=== PATIENT | female | born 1955 | race African-American/Black ===

== ENCOUNTER 2016-09-17 13:48 | Emergency (ER) | payer MEDICARE, OTHER ==
[~2016-09-17] VITALS: Ht 167.6 cm; Wt 76.7 kg
[~2016-09-17 13:48] MED LIST: ACETAMINOPHEN-1 EAC1 ORAL; ANTIVERT25 MG ORAL; HYDROCHLOROTH12.5 M2 ORAL; METROGEL-VAGINA70 G1 VAGIN; ONDANSETRON ODT4 MG ORAL; ZANTAC150 MG ORAL; ZYRTEC10 MG ORAL
[2016-09-17 14:30] VITALS: BP 115/75
--- NOTE | 2016-09-17 15:19 | Emergency Room Report ---
History of Present Illness General Chief Complaint: Abdominal Pain Source: Patient Present Illness HPI 61-year-old female presents to ED for evaluation. Patient states the last week she's had mid abdominal pain. Gas-like pain. Sharp. 5/10. Radiating from left to right. No other aggravating relieving factors. Notes nausea. Denies vomiting. Notes feeling constipated. Notes history of acid reflux and is taking Zantac. Denies chest pain or shortness of breath. No other aggravating or leading factors. Denies any other associated symptoms Allergies: Coded Allergies: Cultivated Oat Pollen (Verified Allergy, Severe, Shortness of Breath, ) Patient History Past Medical History: HTN Past Surgical History: none Pertinent Family History: none Social History: Denies: alcohol use, drug use, smoking Now: No Immunizations: UTD Reviewed Nursing Documentation: PMH: Agreed, PSxH: Agreed Nursing Documentation-PMH Past Medical History: No History, Except For Hx Cardiac Problems: No - Hypothyroidism Hx Hypertension: Yes Hx Pacemaker: No Hx Asthma: No Hx COPD: No Hx Diabetes: No Hx Cancer: No Hx Gastrointestinal Problems: No Hx Dialysis: No History Of Psychiatric Problem: No Hx Neurological Problems: No Hx Cerebrovascular Accident: No Hx Seizures: No Review of Systems All Other Systems: negative except mentioned in HPI Physical Exam Vital Signs Date Time Temp Pulse Resp B/P Pulse Ox O2 Delivery O2 Flow Rate FiO2 09/17/16 14:04 98.2 90 16 119/68 99 Room Air Sp02 EP Interpretation: reviewed, normal General Appearance: no apparent distress, alert, GCS 15, non-toxic Head: normocephalic, atraumatic Eyes: bilateral eye PERRL, bilateral eye normal inspection ENT: hearing grossly normal, normal pharynx, no angioedema, normal voice Neck: full range of motion, supple/symm/no masses Respiratory: chest non-tender, lungs clear, normal breath sounds, speaking full sentences Cardiovascular #1: regular rate, rhythm, no edema Cardiovascular #2: 2+ carotid (R), 2+ carotid (L), 2+ radial (R), 2+ radial (L) , 2+ dorsalis pedis (R), 2+ dorsalis pedis (L) Gastrointestinal: normal bowel sounds, non tender, soft, non-distended, no guarding, no rebound Rectal: deferred Genitourinary: normal inspection, no CVA tenderness Musculoskeletal: back normal, gait/station normal, normal range of motion, non- tender Neurologic: alert, oriented x3, responsive, motor strength/tone normal, sensory intact, speech normal Psychiatric: judgement/insight normal, memory normal, mood/affect normal, no suicidal/homicidal ideation Reflexes: 3+ bicep (R), 3+ bicep (L), 3+ tricep (R), 3+ tricep (L), 3+ knee (R) , 3+ knee (L) Skin: normal color, no rash, warm/dry, well hydrated Lymphatic: no adenopathy Medical Decision Making Diagnostic Impression: Primary Impression: Constipation Qualified Codes: K59.00 - Constipation, unspecified Additional Impressions: Vaginal candidiasis GERD (gastroesophageal reflux disease) Qualified Codes: K21.9 - Gastro-esophageal reflux disease without esophagitis ER Course Hospital Course 61-year-old female presents ED complaining of abd discomfort. History of GERD. Differential diagnosis includes- UTI, gastritis, constipation Clinical course Patient placed on stretcher. After initial history and physical I ordered UA, prilosec, KUB Labs - UA shows + yeast, no UTI KUB - copious stool noted Upon reassessment, patient states pain has improved. Given improvement in symptoms and lack of acute findings, I believe patient can be safely discharged to home. Patient agrees with plan I feel this is a highly complex case requiring extensive working including EKG/ Rhythm strip, Xray/CT/US, Blood/urine lab work, repeat exams while in ED, and administration of strong opiates/narcotics for pain control, admission to hospital or close patient follow up. Diagnosis - constipation, vaginal candidiasis, GERD Stable and discharged to home with Rx diflucan, Colace. instructed on high- fiber diet. Followup with PMD. Return to ED if symptoms recur or worsen Labs Test 09/17/16 15:30 Urine Color Yellow Urine Appearance Slightly cloudy Urine pH 7 (4.5-8.0) Urine Specific [place] 1.010 (1.005-1.035) Urine Protein 2+ (NEGATIVE) Urine Glucose (UA) Negative (NEGATIVE) Urine Ketones Negative (NEGATIVE) Urine Occult Blood 4+ (NEGATIVE) Urine Nitrite Negative (NEGATIVE) Urine Bilirubin 1+ (NEGATIVE) Urine Ictotest Negative Urine Urobilinogen 8 MG/DL (0.0-1.0) Urine Leukocyte Esterase 2+ (NEGATIVE) Urine RBC 5-10 /HPF (0 - 2) Urine WBC 2-4 /HPF (0 - 2) Urine Squamous Epithelial Cells Few /LPF (NONE/OCC) Urine Bacteria Few /HPF (NONE) Urine Yeast Few /HPF (NONE) Other X-Ray Diagnostic Results Other X-Ray Diagnostic Results : X-Ray Ordered: KUB EP Interpretation: Yes Findings: no fractures, no dislocation, no soft tissue swelling, other - fecal impaction Number of Views: 1 Last Vital Signs Date Time Temp Pulse Resp B/P Pulse Ox O2 Delivery O2 Flow Rate FiO2 09/17/16 14:04 98.2 90 16 119/68 99 Room Air Status: improved Disposition: HOME, SELF-CARE Condition: Stable Scripts Ondansetron Odt* (ZOFRAN ODT*) 4 Mg Tab.rapdis 4 MG ORAL Q6H Y for Nausea & Vomiting, #30 TAB 0 Refills Prov: CODY YU M.D. 09/17/16 Docusate Sodium* (COLACE*) 100 Mg Capsule 100 MG ORAL THREE TIMES A DAY, #30 CAP Prov: CODY YU M.D. 09/17/16 Fluconazole (DIFLUCAN) 150 Mg Tablet 150 MG PO QWEEK, #2 TAB 0 Refills Prov: CODY YU M.D. 09/17/16 CODY YU M.D. Sep 17, 2016 15:19
[2016-09-17 15:43] LABS: APPEARANCE,URINE SLIGHTLY CLOUDY; KETONES,URINE NEGATIVE (NEGATIVE); LEUKOCYTE ESTERASE ,URINE 2+ (NEGATIVE); NITRITE,URINE NEGATIVE (NEGATIVE); PH,URINE 7 (4.5-8.0); PROTEIN,URINE 2+ (NEGATIVE); UROBILINOGEN,URINE 8 MG/DL (0.0-1.0)
[2016-09-17 15:58] LABS: BACTERIA,URINE FEW /HPF; SQUAMOUS EPITHELIAL CELL,UR FEW /LPF (NONE/OCC)
[2016-09-17 15:59] LABS: YEAST,URINE FEW /HPF
[2016-09-17 16:00] VITALS: BP 105/65
[2016-09-17 16:05] LABS: ICTOTEST NEGATIVE
[2016-09-17] MEDS ORDERED: DIFLUCAN150 MG PO (16:12)
[2016-09-17] MEDS ORDERED: COLACE100 MG ORAL (16:12)
[2016-09-17] MEDS ORDERED: ZOFRAN ODT4 MG ORAL (16:17)
--- NOTE | 2016-09-19 08:59 | Diagnostic Imaging Report ---
Indication: ABD PAIN. Technique: One view abdomen Findings: The bowel gas pattern is nonobstructive. There is no free fluid. No gross free air is identified. Narrowing of the superior joint compartment of the left hip is present with subchondral cyst formation and spurring. There is also spurring of the right hip. There are 2 clips over the right acetabulum. Impression: Nonobstructive bowel gas pattern. Degenerative change of the hips bilaterally, left greater than right. Clips of the right hip from previous surgery.
== END 2016-09-17 16:25 | disposition home or self-care (01) ==
LOC: EMR 16:20
DX: K59.00 Constipation, unspecified (principal); B37.3 Candidiasis of vulva and vagina; K21.9 Gastro-esophageal reflux disease without esophagitis; I10 Essential (primary) hypertension; Z91.048 Other nonmedicinal substance allergy status
CPT/HCPCS: 74000; 81003; 87086; 99284

== ENCOUNTER 2017-03-25 16:10 | Emergency (ER) | payer MEDICARE, MEDICAID ==
[~2017-03-25] VITALS: Ht 167.6 cm; Wt 72.6 kg
[~2017-03-25 16:10] MED LIST changes: +COLACE100 MG ORAL; +DIFLUCAN150 MG PO; +ZOFRAN ODT4 MG ORAL
[2017-03-25 16:50] VITALS: BP 134/73
[2017-03-25 17:12] LABS: KETONES,URINE NEGATIVE (NEGATIVE); LEUKOCYTE ESTERASE ,URINE NEGATIVE (NEGATIVE); NITRITE,URINE NEGATIVE (NEGATIVE); PH,URINE 7 (4.5-8.0); PROTEIN,URINE NEGATIVE (NEGATIVE); UROBILINOGEN,URINE NORMAL MG/DL (0.0-1.0)
[2017-03-25] MEDS ORDERED: LIPITOR80 MG ORAL (17:12)
[2017-03-25] MEDS ORDERED: MOVANTIK25 MG PO (17:12)
[2017-03-25] MEDS ORDERED: GABAPENTIN600 MG ORAL (17:12)
[2017-03-25] MEDS ORDERED: SYNTHROID75 MCG ORAL (17:12)
[2017-03-25 17:13] LABS: APPEARANCE,URINE CLEAR
[2017-03-25 17:18] LABS: SQUAMOUS EPITHELIAL CELL,UR FEW /LPF (NONE/OCC); WBC,URINE 0-2 /HPF (0 - 2)
--- NOTE | 2017-03-25 17:41 | Emergency Room Report ---
History of Present Illness General Chief Complaint: Headache Source: Patient Present Illness HPI 61 YO Female presents to the ED C/O progressive frontal OSBORN 6/10 in severity x 3 days. pt. reports fatigue, and dryness. pt. denies trauma or fall. Pt reports increased allergies x 2 weeks. pt. regularly takes zyrtec-D daily, and states she used to regularly receive allergy shots however recently had change in insurances and has not received allergy injections in 3 months. Pt. reports vaginal yeast infection with moderate itching, and burning sensation to the external vaginal labia. pt. also reports fb sensation in the left ear, denies pain. pt. denies dizziness, imbalance, Nausea, vomiting, fevers or chills. pt. reports increased sinus pressure, some nasal congestion. denies visual changes, photophobia, hyperacusis, neck pain or neck stiffness. Denies CP, Palpitations, paresthesias, or sudden onset of severe OSBORN. Allergies: Coded Allergies: Cultivated Oat Pollen (Verified Allergy, Severe, Shortness of Breath, ) Patient History Past Medical History: see triage record Past Surgical History: none Pertinent Family History: none Last Menstrual Period: 2009 Now: No Reviewed Nursing Documentation: PMH: Agreed, PSxH: Agreed Nursing Documentation-PMH Hx Cardiac Problems: No - Hypothyroidism Hx Hypertension: Yes Hx Pacemaker: No Hx Asthma: No Hx COPD: No Hx Diabetes: No Hx Cancer: No Hx Gastrointestinal Problems: No Hx Dialysis: No Hx Neurological Problems: No Hx Cerebrovascular Accident: No Hx Seizures: No Review of Systems All Other Systems: negative except mentioned in HPI Physical Exam Vital Signs Date Time Temp Pulse Resp B/P (MAP) Pulse Ox O2 Delivery O2 Flow Rate FiO2 03/25/17 16:17 99.0 155/70 Room Air 03/25/17 16:50 77 19 100 Sp02 EP Interpretation: reviewed, normal General Appearance: no apparent distress, alert, GCS 15, non-toxic Head: normocephalic, atraumatic Eyes: bilateral eye normal inspection, bilateral eye PERRL, bilateral eye EOMI , bilateral eye other - no photophobia ENT: hearing grossly normal, normal voice, uvula midline, moist mucus membranes , nasal congestion - clear nasal d/c bilaterally. turbinates are swollen and boggy in appearance, other - excessive cerumen noted in the left ear canal. bilateral TM's are WNL , not bulging, no erythema, no tenderness. Neck: full range of motion, no meningismus, no bony tend Respiratory: lungs clear, normal breath sounds, no respiratory distress, no wheezing, speaking full sentences Cardiovascular #1: regular rate, rhythm Gastrointestinal: non tender, non-distended, no guarding Rectal: deferred Genitourinary: normal inspection, no CVA tenderness Musculoskeletal: back normal, gait/station normal, normal range of motion, non- tender Neurologic: alert, oriented x3, responsive, motor strength/tone normal, sensory intact, normal gait, speech normal, no pronator, other - negative richards's Psychiatric: judgement/insight normal, memory normal, mood/affect normal Skin: normal color, no rash, warm/dry, well hydrated Lymphatic: no adenopathy Medical Decision Making PA Attestation Dr. mccabe is my supervising Physician whom patient management has been discussed with. Diagnostic Impression: Primary Impression: Sinus headache Additional Impressions: Vaginitis Qualified Codes: N76.0 - Acute vaginitis Excessive cerumen in left ear canal ER Course 61 YO Female presents to the ED C/O progressive frontal OSBORN 12/17 in severity x 3 days. pt. reports fatigue, and dryness. pt. denies trauma or fall. Pt reports increased allergies x 2 weeks. pt. regularly takes zyrtec-D daily, and states she used to regularly receive allergy shots however recently had change in insurances and has not received allergy injections in 3 months. Pt. reports vaginal yeast infection with moderate itching, and burning sensation to the external vaginal labia. pt. also reports fb sensation in the left ear, denies pain. pt. denies dizziness, imbalance, Nausea, vomiting, fevers or chills. pt. reports increased sinus pressure, some nasal congestion. denies visual changes, photophobia, hyperacusis, neck pain or neck stiffness. Denies CP, Palpitations, paresthesias, or sudden onset of severe OSBORN. Ddx considered but are not limited to migraine, SAH, Psedudo motor Cerebri, Mass lesion, Sinus OSBORN, Cluster OSBORN, Tension OSBORN, Post lumbar puncture OSBORN, dehydrations, allergic rhiniis, UTI just to name a few. Vital signs: are WNL, pt. is afebrile H&PE are most consistent with sinus OSBORN exacerbated by environmental allergies, possible mild dehydration ORDERS: - UA: unremarkable ED INTERVENTIONS: - 1000cc NS IV DISCHARGE: At this time pt. is stable for d/c to home. Will provide printed patient care instructions, and any necessary prescriptions. Care plan and follow up instructions have been discussed with the patient prior to discharge. Labs Test 03/25/17 16:40 Urine Color Pale yellow Urine Appearance Clear Urine pH 7 (4.5-8.0) Urine Specific [place] 1.015 (1.005-1.035) Urine Protein Negative (NEGATIVE) Urine Glucose (UA) Negative (NEGATIVE) Urine Ketones Negative (NEGATIVE) Urine Occult Blood 3+ (NEGATIVE) Urine Nitrite Negative (NEGATIVE) Urine Bilirubin Negative (NEGATIVE) Urine Urobilinogen Normal MG/DL (0.0-1.0) Urine Leukocyte Esterase Negative (NEGATIVE) Urine RBC 2-4 /HPF (0 - 2) Urine WBC 0-2 /HPF (0 - 2) Urine Squamous Epithelial Cells Few /LPF (NONE/OCC) Urine Bacteria None /HPF (NONE) Last Vital Signs Date Time Temp Pulse Resp B/P (MAP) Pulse Ox O2 Delivery O2 Flow Rate FiO2 03/25/17 16:50 99.0 77 19 134/73 100 Room Air Disposition: HOME, SELF-CARE Condition: Stable Scripts Miconazole Nitrate (MONISTAT 3) 24 Gm Cmb.pf.crm 24 GM VG DAILY for 3 Days, GM Prov: Madisyn Wright P.A. 03/25/17 Loratadine (CLARITIN) 10 Mg Tablet 10 MG ORAL DAILY, #30 TAB Prov: Madisyn Wright P.A. 03/25/17 Mometasone Furoate (NASONEX) 17 Gm Destrehan.pump 2 SPRAYS NASAL DAILY, #17 GM 0 Refills Prov: Madisyn Wright P.A. 03/25/17 Meclizine Hcl* (MECLIZINE*) 25 Mg Tablet 25 MG ORAL BID, #3 TAB Prov: Madisyn Wright P.A. 03/25/17 Carbamide Peroxide (DEBROX) 15 Ml Drops 5 DROP LEFT EAR TWICE A DAY for 4 Days, #15 ML 0 Refills Prov: Madisyn Wright P.A. 03/25/17 Referrals: BALTAZAR DIAS (PCP) Patient Instructions: Allergies, [id number]-Qgon, Sinus Headache Additional Instructions: Take medications as directed. Follow up with a Primary Care Provider in 3-5 days, even if your symptoms have resolved. --Please review list of primary care clinics, if you do not already have a primary care provider Return sooner to ED if new symptoms occur, or current symptoms become worse. Do not drink alcohol, drive, or operate heavy machinery while taking Meclizine as this may cause drowsiness. - Please note that this Emergency Department Report was dictated using [employer] account executive technology software, occasionally this can lead to erroneous entry secondary to interpretation by the dictation equipment. Madisyn Wright Mar 25, 2017 17:41
[2017-03-25] MEDS ORDERED: DEBROX15 M1 LEFT EAR (17:45)
[2017-03-25] MEDS ORDERED: MONISTAT 324 GM VG (17:45)
[2017-03-25] MEDS ORDERED: CLARITIN10 MG ORAL (17:45)
[2017-03-25] MEDS ORDERED: NASONEX17 GM NASAL (17:45)
[2017-03-25] MEDS ORDERED: MECLIZINE HCL25 MG ORAL (17:45)
[2017-03-25 17:58] VITALS: BP 134/73
[2017-03-25 18:00] VITALS: BP 134/73
== END 2017-03-25 18:00 | disposition home or self-care (01) ==
LOC: EMR 16:25
DX: R51 Headache (principal); N76.0 Acute vaginitis; H61.22 Impacted cerumen, left ear; Z91.09 Other allergy status, other than to drugs and biological substances; I10 Essential (primary) hypertension
CPT/HCPCS: 81003; 96374; 99284

== ENCOUNTER 2017-05-24 13:30 | Emergency (ER) | payer MEDICARE, MEDICAID ==
[~2017-05-24] VITALS: Ht 167.6 cm; Wt 73.0 kg
[~2017-05-24 13:30] MED LIST changes: +CLARITIN10 MG ORAL; +DEBROX15 M1 LEFT EAR; +GABAPENTIN600 MG ORAL; +LIPITOR80 MG ORAL; +MECLIZINE HCL25 MG ORAL; +MONISTAT 324 GM VG; +MOVANTIK25 MG PO; +NASONEX17 GM NASAL; +SYNTHROID75 MCG ORAL
[2017-05-24 13:48] VITALS: BP 150/73
[2017-05-24] MEDS ORDERED: CIPRO500 MG PO (14:35)
[2017-05-24 14:44] VITALS: BP 150/73
--- NOTE | 2017-05-25 19:35 | Emergency Room Report ---
History of Present Illness General Chief Complaint: Skin Rash/Abscess Source: Patient, Medical Record Present Illness HPI The patient is a 61-year-old female presenting for skin rash. She states that she noticed bumps on her skin approximately 1 month prior which did not resolve. She then went to see her primary doctor 2 weeks ago who diagnosed her with folliculitis and give her prescription for Keflex. She states that she has one day left of this medication and the symptoms have not resolved at all. Pain is described as a 4/10 burning sensation. She does state that she was frequenting a spot and frequently went into the hot tub before the rash. She denies any other symptoms including N, V, F, chills, SOB, diarrhea Allergies: Coded Allergies: Cultivated Oat Pollen (Verified Allergy, Severe, Shortness of Breath, ) Patient History Past Medical History: see triage record Pertinent Family History: none Last Menstrual Period: none Now: No : 2 Para: 2 Reviewed Nursing Documentation: PMH: Agreed, PSxH: Agreed Nursing Documentation-PMH Hx Cardiac Problems: No - Hypothyroidism Hx Hypertension: Yes Hx Pacemaker: No Hx Asthma: No Hx COPD: No Hx Diabetes: No Hx Cancer: No Hx Gastrointestinal Problems: No Hx Dialysis: No Hx Neurological Problems: No Hx Cerebrovascular Accident: No Hx Seizures: No Physical Exam Vital Signs Date Time Temp Pulse Resp B/P (MAP) Pulse Ox O2 Delivery O2 Flow Rate FiO2 05/24/17 13:39 98.1 94 17 150/73 98 Room Air Sp02 EP Interpretation: reviewed, normal General Appearance: no apparent distress, alert, GCS 15, non-toxic Head: normocephalic, atraumatic Eyes: bilateral eye normal inspection, bilateral eye PERRL Neck: full range of motion, supple/symm/no masses Respiratory: chest non-tender, lungs clear, normal breath sounds, speaking full sentences Cardiovascular #1: regular rate, rhythm, no edema Gastrointestinal: normal bowel sounds, non tender, soft, non-distended, no guarding, no rebound Musculoskeletal: back normal, gait/station normal, normal range of motion, non- tender Neurologic: alert, oriented x3, responsive, motor strength/tone normal, sensory intact, speech normal Psychiatric: judgement/insight normal, memory normal, mood/affect normal, no suicidal/homicidal ideation Skin: normal turgor, rash - Multiple papules with erythematous base on the arms , trunk, back, and legs. Lymphatic: no adenopathy Medical Decision Making PA Attestation Dr. Stevenson is my supervising physician. Patient management was discussed with my supervising physician Diagnostic Impression: Primary Impression: Folliculitis ER Course The patient is a 61-year-old female presenting for skin rash Ddx considered include but not limited to folliculitis, insect bite, contact dermatitis, eczema, cellulitis PE: NAD Multiple papules with erythematous base on the arms, trunk, back, and legs. Due to Keflex being ineffective and patient's frequent hot tub use, She will be placed on cipro and needs to FU with PMD and dermatology. SHe agrees. Last Vital Signs Date Time Temp Pulse Resp B/P (MAP) Pulse Ox O2 Delivery O2 Flow Rate FiO2 05/24/17 14:44 98.1 92 17 150/73 98 Room Air Status: improved Disposition: HOME, SELF-CARE Condition: Improved Scripts Ciprofloxacin* (CIPRO*) 500 Mg Tablet 500 MG PO BID, #20 TAB Prov: ROSAURA CHO 05/24/17 Patient Instructions: Rash, Folliculitis Additional Instructions: I discussed my findings with the patient. All questions and concerns have been answered. Treatment and medication compliance have been addressed. I advised the patient that they need to follow up with PMD in 3-5 days. Return to ED if symptoms worsen, new symptoms arise, or if needed for any reason. Patient verbalized understanding of discharge instructions. Please follow up with the leak detector as discussed ROSAURA CHO May 25, 2017 19:35
== END 2017-05-24 14:44 | disposition home or self-care (01) ==
LOC: EMR 14:20
DX: L73.9 Follicular disorder, unspecified (principal); I10 Essential (primary) hypertension; E03.9 Hypothyroidism, unspecified
CPT/HCPCS: 99283

== ENCOUNTER 2017-10-09 17:48 | Emergency (ER) | payer MEDICARE, MEDICAID ==
[~2017-10-09] VITALS: Ht 167.6 cm; Wt 77.1 kg
[~2017-10-09 17:48] MED LIST changes: +CIPRO500 MG PO
[2017-10-09] MEDS ORDERED: DiphenhydrAMINE 50mg/ml Inj IVP ONE (18:30)
[2017-10-09 18:39] VITALS: BP 125/59
[2017-10-09 18:53] LABS: BASOPHILS % (AUTO) 0.6 % (0.0-2.0); HEMATOCRIT 44.7 % (37.0-47.0); HEMOGLOBIN 15.5 G/DL (12.0-16.0); LYMPHOCYTES % (AUTO) 19.9 % (20.0-45.0); MEAN CORPUSCULAR VOLUME 94 FL (80-99); MONOCYTES % (AUTO) 11.1 % (1.0-10.0); NEUTROPHILS % (AUTO) 68.5 % (45.0-75.0); PLATELET COUNT 363 K/UL (150-450); RED BLOOD COUNT 4.78 M/UL (4.20-5.40); RED CELL DISTRIBUTION WIDTH 11.6 % (11.6-14.8)
[2017-10-09 19:00] LABS: ANION GAP 6 mmol/L (5-15); BLOOD UREA NITROGEN 6 mg/dL (7-18); CALCIUM 9.3 MG/DL (8.5-10.1); CARBON DIOXIDE 31 MMOL/L (21-32); CHLORIDE 101 MMOL/L (98-107); CREATININE 0.9 MG/DL (0.55-1.30); POTASSIUM 2.9 MMOL/L (3.5-5.1); SODIUM 138 MMOL/L (136-145)
[2017-10-09 19:23] LABS: ALANINE AMINOTRANSFERASE 32 U/L (12-78); ALBUMIN 3.7 G/DL (3.4-5.0); ALBUMIN/GLOBULIN RATIO 0.7 (1.0-2.7); ALKALINE PHOSPHATASE 95 U/L (46-116); ASPARTATE AMINO TRANSFERASE 23 U/L (15-37); BILIRUBIN,TOTAL 0.6 MG/DL (0.2-1.0); CKMB 0.6 NG/ML (0.0-3.6); CREATINE KINASE 86 U/L (26-308)
[2017-10-09] MEDS ORDERED: Albuterol/Ipratropium 3ml neb HHN ONE (19:45)
[2017-10-09] MEDS ORDERED: ALBUTEROL SULF8.5 GM INH (20:10)
[2017-10-09] MEDS ORDERED: AMOXICILLIN500 MG ORAL (20:10)
[2017-10-09 20:30] VITALS: BP 125/59
--- NOTE | 2017-10-10 08:55 | Diagnostic Imaging Report ---
Indication: Shortness of breath Technique: One view of the chest Comparison: 09/27/2059 Findings: Lungs and pleural spaces are clear. Heart size is normal. No significant interim change Impression: No acute process
--- NOTE | 2017-10-10 17:42 | Cardiology Report ---
APPROVED REPORT EKG Measurement Heart [id number] Normal sinus rhythm Normal ECG
--- NOTE | 2017-10-12 06:53 | Emergency Room Report ---
History of Present Illness General Chief Complaint: Upper Respiratory Illness Present Illness HPI Patient is a 62-year-old female who presented after increased nasal congestion as well as cough and chest discomfort. Patient had gradual onset of symptoms. She reported having associated chest tightness. Patient had been taking her inhalers without improvement. The patient reports having prior history of allergies. She denies prior history of cardiac disease. Allergies: Coded Allergies: Cultivated Oat Pollen (Verified Allergy, Severe, Shortness of Breath, ) Patient History Past Medical History: see triage record Reviewed Nursing Documentation: PMH: Agreed; PSxH: Agreed Nursing Documentation-PMH Hx Cardiac Problems: No - Hypothyroidism Hx Hypertension: Yes Hx Pacemaker: No Hx Asthma: No Hx COPD: No Hx Diabetes: No Hx Cancer: No Hx Gastrointestinal Problems: No Hx Dialysis: No Hx Neurological Problems: No Hx Cerebrovascular Accident: No Hx Seizures: No Review of Systems All Other Systems: negative except mentioned in HPI Physical Exam Vital Signs Date Time Temp Pulse Resp B/P (MAP) Pulse Ox O2 Delivery O2 Flow Rate FiO2 10/09/17 18:01 98.4 10 2 146/67 100 Room Air 98.4 10/09/17 20:11 21 Sp02 EP Interpretation: reviewed, normal General Appearance: normal inspection, well appearing, no apparent distress, alert, GCS 15 Head: atraumatic ENT: normal ENT inspection, hearing grossly normal, normal voice Neck: normal inspection, full range of motion, supple, no bony tend Respiratory: normal inspection, lungs clear, normal breath sounds, no respiratory distress, no retraction, no wheezing Cardiovascular #1: regular rate, rhythm, no edema Gastrointestinal: normal inspection, normal bowel sounds, non tender, soft, no guarding, no hernia Genitourinary: no CVA tenderness Musculoskeletal: normal inspection, back normal, normal range of motion Neurologic: normal inspection, alert, oriented x3, responsive, manager lsw III-XII nml as tested, speech normal Psychiatric: normal inspection, judgement/insight normal, mood/affect normal Skin: normal inspection, normal color, no rash Medical Decision Making Diagnostic Impression: Primary Impression: Facial rash Additional Impression: Pneumonia ER Course Patient presented for chest pain. Differential diagnosis included but was not limited to acute coronary syndrome, pulmonary embolism, pneumonia, aortic dissection, shingles, pneumothorax, aortic dissection, esophageal rupture, pericarditis. Because of complexity of patient's case laboratory testing and imaging studies were ordered. The patient was noted to have some mild crackles on lung exam. She is given breathing treatment. Patient given prescription for antibiotics. She was given steroids in the emergency department. The patient was offered admission and she declined. The patient is advised to follow up with primary care doctor in 1-2 days. Patient is advised to return if any worsening condition or if any changes in status that are concerning. This report is dictated with [employer] anesthesiologist physician software which may occasionally lead to discrepancies related to use of this software. Labs Test 10/09/17 18:36 White Blood Count 12.0 K/UL (4.8-10.8) Red Blood Count 4.78 M/UL (4.20-5.40) Hemoglobin 15.5 G/DL (12.0-16.0) Hematocrit 44.7 % (37.0-47.0) Mean Corpuscular Volume 94 FL (80-99) Mean Corpuscular Hemoglobin 32.5 PG (27.0-31.0) Mean Corpuscular Hemoglobin Concent 34.7 G/DL (32.0-36.0) Red Cell Distribution Width 11.6 % (11.6-14.8) Platelet Count 363 K/UL (150-450) Mean Platelet Volume 6.2 FL (6.5-10.1) Neutrophils (%) (Auto) 68.5 % (45.0-75.0) Lymphocytes (%) (Auto) 19.9 % (20.0-45.0) Monocytes (%) (Auto) 11.1 % (1.0-10.0) Eosinophils (%) (Auto) 0.0 % (0.0-3.0) Basophils (%) (Auto) 0.6 % (0.0-2.0) Sodium Level 138 MMOL/L (136-145) Potassium Level 2.9 MMOL/L (3.5-5.1) Chloride Level 101 MMOL/L (98-107) Carbon Dioxide Level 31 MMOL/L (21-32) Anion Gap 6 mmol/L (5-15) Blood Urea Nitrogen 6 mg/dL (7-18) Creatinine 0.9 MG/DL (0.55-1.30) Estimat Glomerular Filtration Rate > 60 mL/min (>60) Glucose Level 87 MG/DL (74-106) Calcium Level 9.3 MG/DL (8.5-10.1) Total Bilirubin 0.6 MG/DL (0.2-1.0) Aspartate Amino Transf (AST/SGOT) 23 U/L (15-37) Alanine Aminotransferase (ALT/SGPT) 32 U/L (12-78) Alkaline Phosphatase 95 U/L (46-116) Total Creatine Kinase 86 U/L (26-308) Creatine Kinase MB 0.6 NG/ML (0.0-3.6) Creatine Kinase MB Relative Index 0.6 Troponin I 0.000 ng/mL (0.000-0.056) Pro-B-Type Natriuretic Peptide 32 pg/mL (0-125) Total Protein 8.7 G/DL (6.4-8.2) Albumin 3.7 G/DL (3.4-5.0) Globulin 5.0 g/dL Albumin/Globulin Ratio 0.7 (1.0-2.7) Lipase 146 U/L (73-393) EKG Diagnostic Results Rate: normal Rhythm: NSR ST Segments: no acute changes ASA given to the pt in ED: No Rhythm Strip Diag. Results EP Interpretation: yes Rhythm: NSR, no PVC's, no ectopy Last Vital Signs Date Time Temp Pulse Resp B/P (MAP) Pulse Ox O2 Delivery O2 Flow Rate FiO2 10/09/17 20:30 98.4 19 125/59 100 Room Air 21 98.4 10/09/17 20:20 88 Status: improved Disposition: HOME, SELF-CARE Condition: Stable Scripts Amoxicillin* (AMOXIL*) 500 Mg Capsule 500 MG ORAL EVERY 8 HOURS, #30 CAP Prov: Volodymyr Peng 10/09/17 Albuterol Sulfate* (ALBUTEROL SULFATE MDI*) 8.5 Gm Hfa.aer.ad 2 PUFF INH Q4H PRN for cough/wheezing, #1 EA 0 Refills Prov: Volodymyr Peng 10/09/17 Referrals: NON PHYSICIAN (PCP) Patient Instructions: Community-Acquired Pneumonia, Adult Volodymyr Peng Oct 12, 2017 06:53
== END 2017-10-09 21:02 | disposition home or self-care (01) ==
LOC: EMR 20:14
DX: R21 Rash and other nonspecific skin eruption (principal); J18.9 Pneumonia, unspecified organism; I10 Essential (primary) hypertension; E03.9 Hypothyroidism, unspecified
CPT/HCPCS: 36415; 71045; 80053; 82550; 82553; 83690; 83880; 84484; 85025; 93005; 94640; 96374; 99284; J1200; J7512; J7620; J8499